=== PATIENT | female | born 1940 | race Two or more races ===

== ENCOUNTER 2018-02-13 10:53 | Emergency (ER) | payer MEDICARE ==
--- NOTE | 2018-02-13 12:30 | NUR ---
PT HAD A GROUND LEVEL MECHANICAL FALL. PT STS " I WAS GOING TO FAST ". AAOX3, DENIES BROTHERS, DIZZINESS, N/V, CP, SOB @ THIS TIME. PT SEEN & EVAL'D BY DR. GUILLEN. WILL CONT TO MONITOR.
[2018-02-13 13:41] VITALS: BP 128/84
--- NOTE | 2018-02-13 13:41 | NUR ---
Patient discharged to home in stable condition. Written and verbal after care instructions given. Patient verbalizes understanding of instruction.
== END 2018-02-13 13:48 | disposition home or self-care (01) ==
LOC: ER 10:56
DX: S02.40FA Zygomatic fracture, left side, initial encounter for closed fracture (principal); S01.81XA Laceration without foreign body of other part of head, initial encounter; W01.0XXA Fall on same level from slipping, tripping and stumbling without subsequent striking against object, initial encounter; Y93.89 Activity, other specified; Y92.89 Other specified places as the place of occurrence of the external cause; Y99.8 Other external cause status
CPT/HCPCS: 70450-TC; 70486-TC; 73030-TC; A6402; A6403

== ENCOUNTER 2018-06-25 06:37 | Emergency (ER) | payer MEDICARE, BC ==
[~2018-06-25] VITALS: Ht 165.1 cm; Wt 53.1 kg
--- NOTE | 2018-06-25 07:09 | NUR ---
BB RA FROM HOME FOR LEFT SIDED CHEST WALL PAIN S/P WATER AEROBICS. STATES SHE FALLS OFTEN AT HOME AND HAS BRUISING ON BOTH ARMS. PT IS AOX4, VSS, RESPIRATIONS EVEN AND UNLABORED. SKIN WARM TO TOUCH, DRY, INTACT. DENIES DIZZINESS, WEAKNESS, N/V/D. READY FOR EVAL.
[2018-06-25 07:12] LABS: BASOPHILS % (AUTO) 0.4 % (0.0-2.0); EOSINOPHILS % (AUTO) 0.9 % (0.0-6.0); HEMATOCRIT 41 % (33-45); LYMPHOCYTES # (AUTO) 0.6 /CMM (0.8-4.8); LYMPHOCYTES % (AUTO) 8.7 % (20.0-44.0); MEAN CORPUSCULAR HGB CONC 34 g/dl (31.0-36.0); MEAN CORPUSCULAR VOLUME 94 fL (82-100); MONOCYTES # (AUTO) 0.7 /CMM (0.1-1.30); MONOCYTES % (AUTO) 10.7 % (2.0-12.0); NEUTROPHILS # (AUTO) 5.2 /CMM (1.8-8.9); NEUTROPHILS % (AUTO) 79.3 % (43.0-81.0); PLATELET COUNT (AUTO) 344 /CMM (150-450); RED BLOOD CELL COUNT(AUTO) 4.37 MIL/uL (4.0-5.2); WHITE BLOOD COUNT (AUTO) 6.6 K/uL (4.3-11.0)
[2018-06-25 07:22] LABS: CALCIUM, SERUM 8.8 mg/dL (8.5-10.1); CARBON DIOXIDE 30 mmol/L (21-32); CHLORIDE 92 mmol/L (98-107); CREATININE 0.5 mg/dL (0.6-1.3); GLUCOSE 95 mg/dL (74-106); POTASSIUM 4.3 mmol/L (3.5-5.1); SODIUM SERUM 127 mmol/L (136-145); UREA NITROGEN, BLOOD 17 mg/dL (7-18)
[2018-06-25 07:29] LABS: ALANINE AMINOTRANSFERASE 41 U/L (12-78); ALBUMIN 3.5 g/dL (3.4-5.0); ALKALINE PHOSPHATASE 123 U/L (46-116); ASPARTATE AMINOTRANSFERASE 29 U/L (15-37); BILIRUBIN,DIRECT 0.1 mg/dL (0.0-0.2); BILIRUBIN,TOTAL 0.5 mg/dL (0.2-1.0); TOTAL PROTEIN, SERUM 7.1 g/dL (6.4-8.2)
--- NOTE | 2018-06-25 07:29 | NUR ---
RECEIVED REPORT FROM ONEIDA HDEZ FOR MIRIAM
--- NOTE | 2018-06-25 09:15 | NUR ---
IV removed. Catheter intact and site benign. Pressure and 4x4 applied to site. No bleeding noted.Patient discharged to home in stable condition. Written and verbal after care instructions given. Patient verbalizes understanding of instruction.
[2018-06-25 09:16] VITALS: BP 146/83
== END 2018-06-25 09:16 | disposition home or self-care (01) ==
LOC: ER 06:40
DX: R07.89 Other chest pain (principal); E87.1 Hypo-osmolality and hyponatremia; R94.31 Abnormal electrocardiogram [ECG] [EKG]; Z95.0 Presence of cardiac pacemaker
CPT/HCPCS: 36415; 71045; 80048; 80076; 84484; 85025; 85730; 93005; 99284; A4606; Z7610